=== PATIENT | male | born 1970 | race Caucasian/White ===

== ENCOUNTER 2023-01-23 12:41 | Emergency (ER) | payer BC ==
[2023-01-23] MEDS ORDERED: Ondansetron ODT 4 MG TAB ONE (17:26)
[2023-01-23] MEDS ORDERED: Cyclopentolate 1% Opth Drop 2 ML BOT ONE (17:26)
[2023-01-23] MEDS ORDERED: Boostrix 0.5 ML (Tdap) VIAL (>/=7 yrs of age) ONE (17:26)
[2023-01-23] MEDS ORDERED: Morphine 4 MG/ML VIAL ONE (17:32)
== END 2023-01-23 18:30 | disposition home or self-care (01) ==
LOC: ERS 12:41
DX: H20.00 Unspecified acute and subacute iridocyclitis (principal); I10 Essential (primary) hypertension; Z23 Encounter for immunization
CPT/HCPCS: 70150; 90471; 90715; 96372; J2270; Q0162

== ENCOUNTER 2025-05-22 09:47 | Outpatient (CLI) | payer OTHER | END 2025-05-22 09:48 | disposition home or self-care (01) | LOC: BICMAMMO 09:47 | PROVIDERS: ATTEND Physical Medicine & Rehabilitation | DX: M85.88 Other specified disorders of bone density and structure, other site (principal); M81.0 Age-related osteoporosis without current pathological fracture | CPT/HCPCS: 77080 ==